=== PATIENT | female | born 1985 | race Caucasian/White ===

== ENCOUNTER 2017-05-22 00:01 | Emergency (ER) | payer BC ==
[2017-05-22 00:30] LABS: Bilirubin Small (Negative); Blood, Urine Large (Negative); Glucose, Urine (Dipstick) Negative (Negative); Leukocyte Negative (Negative); Nitrite Negative (Negative); Protein, Urine (Dipstick) Trace mg/dL (Neg-Trace); Urobilinogen 0.2 mg/dL (0.2-1.0); pH, Urine 5.5 (5.0-9.0)
[2017-05-22 00:43] LABS: #Basophils 0.1 thou/uL (0.0-0.2); #Eosinphils 0.2 thou/uL (0.0-0.7); #Lymphocytes 2.7 thou/uL (1.20-3.40); #Monocytes 0.8 thou/uL (0.11-0.59); #Neutrophils 5.7 thou/uL (1.40-6.50); %Basophils 0.8 % (0.0-1.0); %Lymphocytes 28.2 % (21.0-51.0); %Monocytes 8.4 % (0.0-10.0); %Neutrophils 60.6 % (42.0-75.0); Hemoglobin 13.3 g/dL (12.0-16.0); Mean Corpuscular Hemoglobin 30.6 pg (27.0-31.0); Mean Corpuscular Volume 92.7 fl (81.0-99.0); Mean Platelet Volume 6.9 fL (7.4-10.4); Platelet Count 267 thou/uL (130-400); RBC Distribution Width 11.6 % (11.5-14.5); Red Blood Cell (RBC) Count 4.35 mill/uL (4.20-5.40); White Blood Cell (WBC) Count 9.5 thou/uL (4.8-10.8)
[2017-05-22 00:48] LABS: Clarity Hazy (Clear)
[2017-05-22 00:51] LABS: Specific Gravity, Urine 1.029 (1.002-1.036)
[2017-05-22 00:55] LABS: RBC/HPF GREATER THAN 50-TNTC HPF (0-3); WBC/HPF 0-3 HPF (0-3)
[2017-05-22 00:56] LABS: Bacteria/HPF Rare-Few HPF (None Seen)
[2017-05-22 01:03] LABS: ALT (SGPT) 24 U/L (8-55); AST (SGOT) 22 U/L (5-34); Albumin 4.4 g/dL (3.5-5.0); Alkaline Phosphatase 54 U/L (40-150); Anion Gap 12 mmol/L (10-20); BUN (Urea Nitrogen) 9 mg/dL (7.0-18.7); Bilirubin, Total 0.2 mg/dL (0.2-1.2); Calc. Creatinine Clearance 0 mL/min (70-130); Calcium 10.3 mg/dL (7.8-10.44); Carbon Dioxide 25 mmol/L (22-29); Chloride 105 mmol/L (98-107); Estimated GFR-MDRD Greater than 90; Glucose 104 mg/dL (70-105); Potassium 3.6 mmol/L (3.5-5.1); Protein, Total 7.4 g/dL (6.0-8.3); Sodium 138 mmol/L (136-145)
--- NOTE | 2017-05-22 09:24 | ULT ---
PRELIMINARY REPORT/[facility]/EMERGENCY AFTER HOURS PROCEDURE: EXAM: US , Transvaginal CLINICAL HISTORY: 31 years old, female; Signs and symptoms; Lmp or gestational age (in weeks): 5wks; Other: Vag bleedin g at 5wks; TECHNIQUE: Real-time transvaginal obstetrical ultrasound of the maternal pelvis and a first trimester with image documentation. Transvaginal imaging was used for better evaluation of the fetus and adnexa . COMPARISON: No relevant prior studies available. FINDINGS: Gestation: There are products of an intrauterine gestation as evidenced by gestational sac and yolk sac. There is no visible pole. There are no appreciable heart tones. Estimaged sonographic age based on mean sac diameter: 6 weeks 3 days. Estimaged date of confinement based on mean sac diameter: 8.29.18 Maternal anatomy: Uterus: No acute disease. Ovaries: No acute disease. Adnexa: No acute disease. Free fluid: Absent. Impression: Products of an intrauterine gestation are identified however viability cannot be established at this time. Differential considerations include: -Viable gestation, too early to visualize pole / heart tones. -Nonviable gestation. -An ectopic gestation is unlikely given presence of intrauterine products. EXAM: US Duplex Arterial/Venous of the Pelvis, Complete CLINICAL HISTORY: with pain / bleeding. TECHNIQUE: Real-time duplex ultrasound scan of the arterial and venous flow of the pelvis with color Doppler jani w and spectral waveform analysis. COMPARISON: FINDINGS: Right ovary: No acute findings. 3.8 x 2.6 x 2.9 cm. No solid mass. Normal arterial and venous blood f low. No torsion. Left ovary: No acute findings. 3.5 x 1.9 x 3.5 cm. No solid mass. 1.8 x 1.1 x 1.5 cm cyst, likely cor pus luteum. Normal arterial and venous blood flow. No torsion. IMPRESSION: Normal vascular flow to the ovaries. 1.8 x 1.1 x 1.5 cm left ovarian cyst, likely corpus luteum. Thank you for allowing us to participate in the care of your patient. Dictated and Authenticated by: Sharmila Love MD 05/22/2017 3:22 AM Central Time ([place] & [place]) PELVIC ULTRASOUND: TECHNIQUE: Ferrer scale and Doppler color flow imaging is performed of the pelvis with transvaginal imaging perfor med. FINDINGS/IMPRESSION: I agree with the preliminary interpretation. There is an ovoid focus of decreased echogenicity at the endometrium with subtle internal ill-defined echogenicity. This may relate to a small gestational sac or alternatively a pseudogestational sac f rom endometrial fluid. A live intrauterine gestation is not confirmed at this time. Therefore, clin ical correlation as well as a serial beta HCG followup and imaging followup are recommended for felix nued assessment. POS: JADYN
== END 2017-05-22 04:01 | disposition home or self-care (01) ==
LOC: ERS 00:01
DX: O20.0 Threatened abortion (principal); O99.341 Other mental disorders complicating pregnancy, first trimester; F41.9 Anxiety disorder, unspecified; F32.9 Major depressive disorder, single episode, unspecified; Z79.899 Other long term (current) drug therapy; Z3A.01 Less than 8 weeks gestation of pregnancy
CPT/HCPCS: 36415; 76856; 80053; 81003; 81015; 84702; 85025; 86850; 86900; 86901